=== PATIENT | male | born 1935 | race Caucasian/White ===

== ENCOUNTER 2018-11-20 16:30 | Inpatient (IN) | payer MEDICARE ==
[~2018-11-20] VITALS: Ht 185.4 cm; Wt 93.0 kg
[2018-11-20] MEDS ORDERED: APAP325 MG PO (16:39)
[2018-11-20] MEDS ORDERED: ASPIRIN81 MG PO (16:40)
[2018-11-20] MEDS ORDERED: NAMENDA10 MG PO ×2 (16:40→17:43)
[2018-11-20] MEDS ORDERED: PROSCAR5 MG PO (16:40)
[2018-11-20] MEDS ORDERED: PRINIVIL20 MG PO ×2 (16:40→17:43)
[2018-11-20] MEDS ORDERED: ZOFRAN4 MG PO (16:41)
[2018-11-20] MEDS ORDERED: DESERYL50 M2 PO (16:41)
[2018-11-20] MEDS ORDERED: ZOCOR80 MG PO (17:43)
[2018-11-20] MEDS ORDERED: ZOLOFT100 MG PO (17:44)
[2018-11-20 19:35] LABS: APPEARANCE CLEAR (CLEAR); COLOR DK YELLOW (YELLOW)
[2018-11-20 19:36] LABS: BILIRUBIN NEGATIVE (NEGATIVE); GLUCOSE NEGATIVE (NEGATIVE); KETONE NEGATIVE (NEGATIVE); NITRITE NEGATIVE (NEGATIVE); PROTEIN NEGATIVE (NEGATIVE); SPECIFIC GRAVITY 1.015 (1.005-1.020)
[2018-11-20 19:37] LABS: BACTERIA FEW /hpf (NONE SEEN); WHITE CELLS - URINE 0-5 /hpf (0-5)
[2018-11-20 22:06] VITALS: BP 144/64
[2018-11-20 22:35] VITALS: BP 140/67; BMI 28.6
[2018-11-21 08:47] LABS: BASOPHILS 0.3 % (0-2); EOSINOPHILS 4.4 % (0-7); HEMATOCRIT 46.1 % (42.0-54.0); HEMOGLOBIN 15.1 g/dL (13.5-17.5); IMMATURE GRANULOCYTES 0.2 % (0-5); MCH 30.4 pg (26.0-34.0); MCHC 32.8 g/dL (31.0-37.0); MCV 92.8 fL (80.0-100.0); MEAN PLATELET VOLUME 10.3 fL (7.4-10.4); MONOCYTES 13.3 % (2-11); NEUTROPHILS 54.8 % (40-80); PLATELET COUNT 190 10x3/uL (130-400); RBC 4.97 10x6/uL (4.20-6.10); RDW 13.2 % (11.5-14.5); WBC 6.2 10x3/uL (4.8-10.8)
[2018-11-21 09:11] LABS: ALBUMIN 3.2 g/dL (3.4-5.0); ALKALINE PHOSPHATASE 55 U/L (46-116); ALT (SGPT) 35 U/L (10-68); BILIRUBIN - TOTAL 0.56 mg/dL (0.2-1.3); CALC OSMOLALITY 286 mosm/kg (275-300); CALCIUM 8.7 mg/dL (8.5-10.1); CARBON DIOXIDE 27.9 mmol/L (21.0-32.0); CHLORIDE - SERUM 105 mmol/L (98-107); CHOL - HDL RATIO 2.5 ratio (2.3-4.9); CHOLESTEROL, TOTAL 143 mg/dL (0-200); CREATININE - SERUM 0.8 mg/dL (0.6-1.3); GLUCOSE 117 mg/dL (74-106); HDL CHOLESTEROL 57 mg/dL (32-96); LDL CHOLESTEROL 74 mg/dL (0-100); LDL-HDL RATIO 1.3 ratio (1.5-3.5); POTASSIUM - SERUM 3.2 mmol/L (3.5-5.1); PROTEIN - SERUM 7.1 g/dL (6.4-8.2); SODIUM 143 mmol/L (136-145); THYROID STIMULATING HORMONE 3.09 uIU/mL (0.36-3.74); TRIGLYCERIDE 61 mg/dL (30-200); UREA NITROGEN 14 mg/dL (7-18); eGFR NON AFRICAN AMERICAN > 90 mL/min (90-120)
[2018-11-21 10:33] VITALS: BP 164/76
[2018-11-21 15:03] VITALS: BMI 28.6
[2018-11-21 20:40] VITALS: BP 165/82
[2018-11-22 05:11] LABS: RAPID PLASMA REAGIN Non Reactive (Non Reactive); VITAMIN D 25 HYDROXY 36.2 ng/mL (30.0-100.0)
[2018-11-22 10:10] LABS: FOLATE (FOLIC ACID) - SERUM 19.9 ng/mL (>3.0)
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
[2018-11-22 11:27] VITALS: BP 179/92
[2018-11-23 08:00] VITALS: BP 168/92
--- NOTE | 2018-11-23 17:30 | PN ---
PATIENT:NATHANAEL JIANG MEDICAL RECORD: [id number] LOCATION:[facility]ima112 ADMISSION DATE: 11/20/18 PROGRESS NOTE DATE OF SERVICE: 11/22/2018 SUBJECTIVE: The patient's case was discussed with staff. He has no new complaint. OBJECTIVE: The patient is quite sleepy. He has received at least 4 maybe 5 doses of Haldol and Ativan since admission. He did receive his scheduled Geodon last night and this morning. He is arousable, but quite sleepy. ASSESSMENT: No change in diagnoses. PLAN: The patient is not aggressive today, but that is because of what he has received to calm him. It was not a very good conversation today, not very much meaning was discerned except a confirmation that he is severely impaired cognitively and his dementia is advanced. I suspect the numerous changes to his environment and routine have led to him displaying this agitation. The goal will be to calm him and help him adapt to a new environment, so that he could be reasonably cared for in a fpc. TRANSINT:[id number] Voice Confirmation ID: [id number] DOCUMENT ID: [id number] KAILA HOUSE MD at 1730 CC: [id number] DICTATION DATE: 11/22/18 1241 RF MICROWAVE ENGINEER: 11/22/18 2208 ADM IN [place] [id number] [place] [id number]
[2018-11-23 21:09] VITALS: BP 132/60
[2018-11-24 09:04] VITALS: BP 144/79
--- NOTE | 2018-11-24 15:00 | PN ---
PATIENT:NATHANAEL JIANG MEDICAL RECORD: [id number] LOCATION:[facility]AN[facility] Fatima112 ADMISSION DATE: 11/20/18 PROGRESS NOTE DATE OF SERVICE: 11/23/2018 SUBJECTIVE: The patient's case was discussed with staff. He has no new complaint. OBJECTIVE: The patient has been aggressive at times. He has fairly limited insight about his condition. ASSESSMENT: No change in diagnoses. PLAN: The patient will be maintained on current medicines with the exception of the trazodone. He intermittently is noncompliant with his medicines, which is problematic in trying to manage his aggressive behavior. Nevertheless, with scheduled medicines and some of the p.r.n. medicines, sleep is not an issue and I would prefer to reduce the number of scheduled medications we give him with the hopes of increasing his compliance. TRANSINT:[id number] Voice Confirmation ID: [id number] DOCUMENT ID: [id number] KAILA HOUSE MD at 1500 CC: [id number] DICTATION DATE: 11/23/18 174 MEDICAL RECORDS SUPERVISOR: 11/23/18 1848 ADM IN [facility] [address] [place] [address]
[2018-11-24 19:34] VITALS: BP 125/61
[2018-11-25 08:10] VITALS: BP 172/73
[2018-11-25 20:00] VITALS: BP 114/44
--- NOTE | 2018-11-26 12:34 | PN ---
PATIENT:NATHANAEL JIANG MEDICAL RECORD: [id number] LOCATION:[facility] Fatima112 ADMISSION DATE: 11/20/18 PROGRESS NOTE DATE OF SERVICE: 11/24/2018 SUBJECTIVE: The patient's case was discussed with staff. He has no new complaint. OBJECTIVE: The patient continues to be agitated and disruptive. Unfortunately, he is only intermittently and partially compliant with his medication regimen. ASSESSMENT: No change in diagnoses. PLAN: The patient is severely impaired cognitively. He will be given a scheduled dose of Klonopin to assist with his agitation. This will be in addition to the Geodon he receives on a scheduled basis. TRANSINT:[id number] Voice Confirmation ID: [id number] DOCUMENT ID: [id number] KAILA HOUSE MD at 1234 CC: [id number] DICTATION DATE: 11/24/18 1532 CHIP CRUSHER OPERATOR: 11/24/18 2142 ADM IN [place] [address] [place] [address]
[2018-11-26 21:10] VITALS: BP 154/53
[2018-11-27 07:00] VITALS: BP 125/60
[2018-11-27 22:33] VITALS: BP 132/68
[2018-11-28 08:10] VITALS: BP 142/73
--- NOTE | 2018-11-28 13:56 | PN ---
PATIENT:NATHANAEL JIANG MEDICAL RECORD: [id number] LOCATION:[facility] Fatima112 ADMISSION DATE: 11/20/18 PROGRESS NOTE DATE OF SERVICE: 11/27/2018 SUBJECTIVE: The patient's case was discussed with staff. He has no new complaint. OBJECTIVE: The patient denies intent to harm himself or others. He tolerates his medicines well. ASSESSMENT: No change in diagnoses. PLAN: Current medicines and therapies have been reviewed. Long-term prognosis is guarded. TRANSINT:[id number] Voice Confirmation ID: [id number] DOCUMENT ID: [id number] KAILA HOUSE MD at 1356 CC: [id number] DICTATION DATE: 11/27/18 1014 EL TEACHER: 11/27/18 1027 ADM IN [address] [address]
[2018-11-29 09:08] VITALS: BP 135/78
[2018-11-29 10:21] VITALS: Ht 185.4 cm; Wt 93.0 kg
--- NOTE | 2018-11-29 15:13 | PN ---
PATIENT:NATHANAEL JIANG MEDICAL RECORD: [id number] LOCATION:[facility]ED Fatima112 ADMISSION DATE: 11/20/18 PROGRESS NOTE DATE OF SERVICE: 11/28/2018 SUBJECTIVE: The patient's case was discussed with staff. He has no new complaint. OBJECTIVE: The patient denies intent to harm himself or others. He does tolerate his medicines well. He is significantly calmer and does not appear to be oversedated at this point. ASSESSMENT: No change in diagnoses. PLAN: Current medicines have been reviewed and will be maintained. He did not sleep well last night and I will monitor that before ordering a hypnotic. TRANSINT:[id number] Voice Confirmation ID: [id number] DOCUMENT ID: [id number] KAILA HOUSE MD at 1513 CC: [id number] DICTATION DATE: 11/28/18 1553 ITALIAN TUTOR: 11/28/18 1800 ADM IN [place] [id number] [place] [id number]
[2018-11-29 23:57] VITALS: BP 140/70
[2018-11-30 08:00] VITALS: BP 106/51
--- NOTE | 2018-11-30 15:00 | PN ---
PATIENT:NATHANAEL JIANG MEDICAL RECORD: [id number] LOCATION:[facility] Fatima112 ADMISSION DATE: 11/20/18 PROGRESS NOTE DATE OF SERVICE: 11/29/2018 SUBJECTIVE: The patient's case was discussed with staff. He has no new complaint. OBJECTIVE: The patient is partially oriented. He is certainly awake and alert. He had some significant agitation last night and did require p.r.n. medication. He is calmer today. I am not sure if this was an isolated event. I am reluctant to just increase his medication based on that and we will observe him another day before deciding. TRANSINT:[id number] Voice Confirmation ID: [id number] DOCUMENT ID: [id number] KAILA HOUSE MD at 1500 CC: [id number] DICTATION DATE: 11/29/18 1620 INTERNET E COMMERCE SPECIALIST: 11/29/18 1840 ADM IN [place] [id number] [place] [id number]
[2018-11-30 23:37] VITALS: BP 100/70
[2018-12-01 07:00] VITALS: BP 169/84
--- NOTE | 2018-12-01 15:55 | PN ---
PATIENT:NATHANAEL JIANG MEDICAL RECORD: [id number] LOCATION:NAHED Fatima112 ADMISSION DATE: 11/20/18 PROGRESS NOTE DATE OF SERVICE: 11/30/2018 SUBJECTIVE: The patient's case was discussed with staff. He has no new complaint. OBJECTIVE: The patient was fairly agitated last night and did require some p.r.n. medication. He required another dose of that today. ASSESSMENT: No change in diagnoses. PLAN: The patient's Klonopin is going to be increased to 0.5 mg twice daily. He will be monitored for clinical changes associated with this increase. His long-term prognosis is guarded. TRANSINT:[id number] Voice Confirmation ID: [id number] DOCUMENT ID: [id number] KAILA HOUSE MD at 1555 CC: [id number] DICTATION DATE: 11/30/18 1511 HOGSHEAD SALVAGE: 11/30/18 1725 ADM IN [place] [address] [place] [address]
[2018-12-01 19:30] VITALS: BP 138/78
[2018-12-02 10:03] VITALS: BP 160/70
--- NOTE | 2018-12-02 16:27 | PN ---
PATIENT:NATHANAEL JIANG MEDICAL RECORD: [id number] LOCATION:NAHED Fatima112 ADMISSION DATE: 11/20/18 PROGRESS NOTE DATE OF SERVICE: 12/01/2018 SUBJECTIVE: The patient's case was discussed with staff. He has no new complaint. OBJECTIVE: The patient is in good behavioral control. He has no thoughts of self-harm. Last night, he was significantly agitated. He has been started on a scheduled dose of Klonopin, which I do not think has had an opportunity to become fully effective. He will be monitored for changes over the next day and may indeed require additional pharmacologic adjustments. TRANSINT:[id number] Voice Confirmation ID: [id number] DOCUMENT ID: [id number] KAILA HOUSE MD at 1627 CC: [id number] DICTATION DATE: 12/01/18 1621 DIGITAL MANAGER: 12/01/18 2205 ADM IN [place] [id number] [place] [address]
[2018-12-02 20:14] VITALS: BP 140/59
[2018-12-03 08:00] VITALS: BP 125/65
--- NOTE | 2018-12-03 11:47 | PN ---
PATIENT:NATHANAEL JIANG MEDICAL RECORD: [id number] LOCATION:[facility]ED Fatima112 ADMISSION DATE: 11/20/18 PROGRESS NOTE DATE OF SERVICE: 12/02/2018 SUBJECTIVE: The patient's case was discussed with staff. He has no new complaint. OBJECTIVE: The patient is in good behavioral control with limited insight about his condition. He tolerates his medicines well. Eye contact is fair. ASSESSMENT: No change in diagnoses. PLAN: Current medicines and therapies have been reviewed, both will be maintained. His long-term prognosis is guarded. TRANSINT:[id number] Voice Confirmation ID: [id number] DOCUMENT ID: [id number] KAILA HOUSE MD at 1147 CC: [id number] DICTATION DATE: 12/02/18 170 OPERATIONS ADMINISTRATOR: 12/02/18 2234 ADM IN [place] [id number] [place] [address]
[2018-12-03 21:54] VITALS: BP 137/61
[2018-12-04 09:00] VITALS: BP 149/76
[2018-12-04 22:15] VITALS: BP 187/79
[2018-12-05 08:00] VITALS: BP 154/80
--- NOTE | 2018-12-05 17:39 | PN ---
PATIENT:NATHANAEL JIANG MEDICAL RECORD: [id number] LOCATION:NAHED Fatima112 ADMISSION DATE: 11/20/18 PROGRESS NOTE DATE OF SERVICE: 12/04/2018 SUBJECTIVE: The patient's case was discussed with staff. He has no new complaint. OBJECTIVE: The patient denies intent to harm himself or others. He is tolerating his medications reasonably well. ASSESSMENT: No change in diagnoses. PLAN: Current medicines have been reviewed and will be maintained. Long-term prognosis is guarded. TRANSINT:[id number] Voice Confirmation ID: [id number] DOCUMENT ID: [id number] KAILA HOUSE MD at 1739 CC: [id number] DICTATION DATE: 12/04/18 1216 SILK SNAPPER: 12/04/18 1727 ADM IN [place] [id number] [place] [address]
--- NOTE | 2018-12-05 17:39 | PN ---
PATIENT:NATHANAEL JIANG MEDICAL RECORD: [id number] LOCATION:NAHED Fatima112 ADMISSION DATE: 11/20/18 PROGRESS NOTE DATE OF SERVICE: 12/04/2018 SUBJECTIVE: The patient's case was discussed with staff. He has no new complaint. OBJECTIVE: The patient denies intent to harm himself or others. He has pretty limited insight about his condition. ASSESSMENT: No change in diagnoses. PLAN: Current medicines and therapies have been reviewed and will be maintained. Long-term prognosis is guarded. TRANSINT:[id number] Voice Confirmation ID: [id number] DOCUMENT ID: [id number] KAILA HOUSE MD at 1739 CC: [id number] DICTATION DATE: 12/04/18 1227 SAP TRAINER: 12/04/18 1729 ADM IN [place] [address] [place] [address]
[2018-12-06 08:00] VITALS: BP 157/60
--- NOTE | 2018-12-06 15:11 | PN ---
PATIENT:NATHANAEL JIANG MEDICAL RECORD: [id number] LOCATION:NAHED Fatima112 ADMISSION DATE: 11/20/18 PROGRESS NOTE DATE OF SERVICE: 12/05/2018 SUBJECTIVE: The patient's case was discussed with staff. He has no new complaint. OBJECTIVE: The patient denies intent to harm himself or others. He generally tolerates his medicines well. He continues to want to get out of the chair and is having difficulty settling. Despite being instructed not to get up without assistance, he just simply is not able to remember those instructions and follow them. He is a very high fall risk. He is practically 1:1 with our staff. I know this is not a practical situation and in a long term and I feel virtually certain he is going to fall and hurt himself in very short order. ASSESSMENT: No change in diagnoses. PLAN: This patient's prognosis is poor. There seems to be very little that can be done to make him more manageable. He has really limited insight about his situation. TRANSINT:[id number] Voice Confirmation ID: [id number] DOCUMENT ID: [id number] KAILA HOUSE MD at 1511 CC: [id number] DICTATION DATE: 12/05/18 1808 ASSISTANT INFANT TODDLER TEACHER: 12/05/18 2341 ADM IN [place] [address] [place] [address]
[2018-12-06 19:31] VITALS: BP 136/89
[2018-12-07 11:35] VITALS: BP 171/60
--- NOTE | 2018-12-07 16:07 | PN ---
PATIENT:NATHANAEL JIANG MEDICAL RECORD: [id number] LOCATION:NAHED Fatima112 ADMISSION DATE: 11/20/18 PROGRESS NOTE DATE OF SERVICE: 12/06/2018 SUBJECTIVE: The patient's case was discussed with staff. He has no new complaint. OBJECTIVE: The patient denies an intent to harm himself or others. Generally tolerates his medicines well. He has limited insight about his situation. He becomes agitated most afternoons and requires p.r.n. Ativan or Geodon. I am going to change the dose of his Klonopin to a t.i.d. schedule to try to anticipate and address this afternoon agitation. He will be monitored for clinical changes. TRANSINT:[id number] Voice Confirmation ID: [id number] DOCUMENT ID: [id number] KAILA HOUSE MD at 1607 CC: [id number] DICTATION DATE: 12/06/18 162 HONING MACHINE SET UP OPERATOR: 12/06/18 192 ADM IN [place] [address] [place] [address]
[2018-12-07 20:48] VITALS: BP 144/59
[2018-12-08 10:01] VITALS: BP 133/62
[2018-12-08 19:56] VITALS: BP 142/91
[2018-12-09 08:00] VITALS: BP 116/75
--- NOTE | 2018-12-09 15:20 | PN ---
PATIENT:NATHANAEL JIANG MEDICAL RECORD: [id number] LOCATION:NAHED Fatima112 ADMISSION DATE: 11/20/18 PROGRESS NOTE DATE OF SERVICE: 12/08/2018 SUBJECTIVE: The patient's case was discussed with staff. He has no new complaint. OBJECTIVE: The patient denies intent to harm himself or others. He is tolerating his medications reasonably well. He was combative today and had to have p.r.n. medication administered. ASSESSMENT: No change in diagnoses. PLAN: The patient will be given a slightly higher dose of Klonopin. He will be monitored for clinical changes associated with its use. His long-term prognosis is guarded. TRANSINT:[id number] Voice Confirmation ID: [id number] DOCUMENT ID: [id number] KAILA HOUSE MD at 1520 CC: [id number] DICTATION DATE: 12/08/18 1524 NEEDLE GRINDER: 12/08/18 2100 ADM IN [place] [id number] [place] [id number]
[2018-12-10 09:17] VITALS: BP 147/62
[2018-12-10 20:00] VITALS: BP 141/55
[2018-12-11 08:59] VITALS: BP 161/71
[2018-12-11 18:17] VITALS: BP 152/58
[2018-12-12 08:04] VITALS: BP 129/45
--- NOTE | 2018-12-12 16:20 | PN ---
PATIENT:NATHANAEL JIANG MEDICAL RECORD: [id number] LOCATION:NAHED Fatima112 ADMISSION DATE: 11/20/18 PROGRESS NOTE DATE OF SERVICE: 12/11/2018 SUBJECTIVE: The patient's case was discussed with staff. He has no new complaint. OBJECTIVE: The patient is in good behavioral control with limited insight about his condition. He tolerates his medicines well. ASSESSMENT: No change in diagnoses. PLAN: Current medicines and therapies have been reviewed and will be maintained. Long-term prognosis is guarded. TRANSINT:[id number] Voice Confirmation ID: [id number] DOCUMENT ID: [id number] KAILA HOUSE MD at 1620 CC: [id number] DICTATION DATE: 12/11/18 1413 PACKAGER HEAD: 12/11/18 1619 ADM IN [facility] [address] [place] [address]
[2018-12-12] MEDS ORDERED: GEODON20 MG PO (16:56)
[2018-12-12] MEDS ORDERED: KLONOPIN0.5 MG PO (16:56)
[2018-12-12] MEDS ORDERED: BYSTOLIC5 MG PO (16:56)
[2018-12-12] MEDS ORDERED: Lisinopril PO (16:56)
[2018-12-12] MEDS ORDERED: LIDODERM 5 %1 PATCH TRANSDERM (16:57)
[2018-12-12] MEDS ORDERED: LINZESS145 MCG PO (16:57)
[2018-12-12] MEDS ORDERED: MIRALAX17 GM PO (16:57)
[2018-12-12 20:40] VITALS: BP 150/54
[2018-12-13 08:00] VITALS: BP 140/61
--- NOTE | 2018-12-14 12:06 | PN ---
PATIENT:NATHANAEL JIANG MEDICAL RECORD: [id number] LOCATION:NAHED Fatima112 ADMISSION DATE: 11/20/18 PROGRESS NOTE DATE OF SERVICE: 12/13/2018 SUBJECTIVE: The patient's case was discussed with staff. He has no new complaint. OBJECTIVE: The patient is in good behavioral control with limited insight about his condition. He does tolerate his medicines well. ASSESSMENT: No change in diagnoses. PLAN: The patient will be transitioned out of the hospital today. Followup will be with his primary care correction physician. TRANSINT:[id number] Voice Confirmation ID: [id number] DOCUMENT ID: [id number] KAILA HOUSE MD at 1206 CC: [id number] DICTATION DATE: 12/13/18 1630 HOTEL OR MOTEL ROOM SERVICE SUPERVISOR: 12/13/182102 DIS IN 12/13/18 [facility] [address] [place] [address]
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
== END 2018-12-13 16:14 | DRG 57 ==
LOC: D.PSYCH 16:30
PROVIDERS: ADMIT Psychiatry & Neurology Psychiatry
DX: G30.1 Alzheimer's disease with late onset (principal); F02.81 Dementia in other diseases classified elsewhere, unspecified severity, with behavioral disturbance; I10 Essential (primary) hypertension; E11.9 Type 2 diabetes mellitus without complications; E78.5 Hyperlipidemia, unspecified; N40.0 Benign prostatic hyperplasia without lower urinary tract symptoms; K59.00 Constipation, unspecified; F41.9 Anxiety disorder, unspecified; F32.9 Major depressive disorder, single episode, unspecified; M25.551 Pain in right hip; H57.89 Other specified disorders of eye and adnexa